=== PATIENT | female | born 1975 | race Two or more races ===

== ENCOUNTER 2019-09-10 10:09 | Inpatient (IN) | payer SELFPAY ==
[~2019-09-10] VITALS: Ht 157.5 cm; Wt 64.0 kg
[2019-09-10] MEDS ORDERED: IV NORMAL SALINE 1000ML BAG 1,000 ML IV ONE (11:45)
[2019-09-10] MEDS ORDERED: CLINDAMYCIN 600MG PREMIX 50 ML IV SCH (12:00)
[2019-09-10 12:22] LABS: BASO # 0.1 x10^3/uL (0.0-0.2); BASO % 1 % (0-3); EOS # 0.1 x10^3/uL (0.0-0.7); EOS % 1 % (0-3); HEMATOCRIT 33.5 % (36.0-47.0); HEMOGLOBIN 11.3 g/dL (12.0-15.5); LYMPH # 2.1 x10^3/uL (1.0-4.8); LYMPH % 24 % (24-48); MEAN CORPUSCULAR HEMOGLOBIN 29 pg (25-35); MEAN CORPUSCULAR HGB CONC 34 g/dL (31-37); MEAN CORPUSCULAR VOLUME 85 fL (79-100); MONO # 0.5 x10^3/uL (0.0-1.1); MONO % 6 % (0-9); NEUT # 6.1 x10^3/uL (1.8-7.7); NEUT % 69 % (31-73); PLATELET COUNT 333 x10^3/uL (140-400); RED BLOOD COUNT 3.93 x10^6/uL (3.50-5.40); RED CELL DISTRIBUTION WIDTH 15.1 % (11.5-14.5); WHITE BLOOD COUNT 8.8 x10^3/uL (4.0-11.0)
[2019-09-10 12:31] LABS: CALCIUM 9.1 mg/dL (8.5-10.1); CREATININE 0.7 mg/dL (0.6-1.0); GFR 90.5; POTASSIUM 4.1 mmol/L (3.5-5.1)
[2019-09-10] MEDS ORDERED: IOHEXOL 300 MG/ML 100ML VIAL. IV ONE (12:45)
[2019-09-10] MEDS ORDERED: CONTRAST GIVEN. MC PRN (12:45)
--- NOTE | 2019-09-10 13:20 | RAD ---
CT MAXILLOFACIAL W/CONTRAST Indication: Swelling and jaw region swelling. Redness and warmth. Difficulty opening mouth. Exposure: One or more of the following individualized dose reduction techniques were utilized for this examination: 1. Automated exposure control 2. Adjustment of the mA and/or kV according to patient size 3. Use of iterative reconstruction technique. Technique: Standard imaging is obtained through the facial region after intravenous contrast demonstration. FINDINGS: Diffuse contiguous swelling of the left parotid gland and adjacent muscles, particularly the masseter muscle. Stranding and swelling of the adjacent fat. There is a irregular low-density collection within ill-defined enhancing wall within this tissue, appears uninvolved both the anterior product gland and the lateral muscle, measuring about 15 mm x 12 mm x 17 mm. The submandibular glands appear unremarkable and symmetric. Mildly prominent submandibular lymph nodes are seen, slightly greater left than right. The visualized airway appears grossly patent and midline. The partially visualized thyroid appears symmetric. Visualized vascular structures appear grossly patent. The study was not protocoled for intracranial evaluation but the partially visualized brain appears grossly symmetric without shift. No abnormal bone destruction or lucency is seen about, maxilla or mandible. No aggressive bone destruction. The visualized sinuses are clear without fluid or mucosal thickening. The visualized orbits appear symmetric. IMPRESSION: Abnormal changes involving the left parotid gland and masseter muscle with an irregular hypodense lesion or collection, suggesting an inflammatory or infectious process with abscess. Note that this could also represent a cystic neoplasm. This most likely arises from the anterior left parotid gland with extension into the adjacent musculature. Electronically signed by: Joel Vera MD (09/10/2019 1:17 PM) [id number]
--- NOTE | 2019-09-10 13:37 | PHYS DOC ---
Past Medical History Past Medical History: No Pertinent History Past Surgical History: Smoking Status: Never Smoker Alcohol Use: None Adult General Chief Complaint Chief Complaint: FACE PROBLEM HPI HPI Patient is a 44 year old female who presents to the emergency department with complaints of left-sided lower jaw swelling and inability to open her mouth. Patient states that the left lower jaw started to hurt approximately 1 week ago. She states she has been taking Bactrim for the last 3 days and her symptoms have continued to worsen. Patient denies any dental pain, dental abscess, fever, cough, sore throat, difficulty swallowing, shortness of breath, nausea, vomiting, diarrhea, abdominal pain, body aches, fatigue, or flulike symptoms. She currently rates her pain a 10 out of 10 on the pain scale, she denies any alleviating factors. Patient states she has tried taking ibuprofen at home with minimal relief of her pain. Review of Systems Review of Systems Complete ROS is negative unless otherwise noted in HPI. Current Medications Current Medications Current Medications Medications (Trade) Dose Ordered Sig/Jessie Start Time Stop Time Status Last Admin Dose Admin Clindamycin Phosphate 50 ml @ 100 mls/hr Q8HRS 09/10/19 12:00 09/10/19 12:26 100 MLS/HR Info (CONTRAST GIVEN -- Rx MONITORING) 1 each PRN DAILY PRN 09/10/19 12:45 09/12/19 12:44 Iohexol (Omnipaque 300 Mg/ml) 70 ml 1X ONCE 09/10/19 12:45 09/10/19 12:46 DC 09/10/19 12:53 70 ML Sodium Chloride 1,000 ml @ 1,000 mls/hr 1X ONCE 09/10/19 11:45 09/10/19 12:44 DC 09/10/19 12:26 1,000 MLS/HR Allergies Allergies Allergies Coded Allergies Type Severity Reaction Last Updated Verified No Known Drug Allergies 09/10/19 No Physical Exam Physical Exam See Above Constitutional: Well developed, well nourished, no acute distress, non-toxic appearance. [] HENT: Normocephalic, atraumatic, bilateral external ears normal, bilateral TMs normal, oropharynx moist, no oral exudates, nose normal Eyes: PERRLA, EOMI, conjunctiva normal, no discharge. [] Neck: Normal range of motion, no tenderness, supple, no stridor. [] Cardiovascular:Heart rate regular rhythm Lungs & Thorax: Bilateral breath sounds clear to auscultation, respirations even and unlabored, no retractions, no respiratory distress [] Skin: Warm, dry, no rash; erythema, warmth, and swelling over left parotid area, no fluctuance, no visual pustule [] Extremities: No cyanosis, no clubbing, ROM intact, no edema. [] Neurologic: Alert and oriented X 3, no focal deficits noted. [] Psychologic: Affect normal, judgement normal, mood normal. [] Current Patient Data Vital Signs Vital Signs Date Time Temp Pulse Resp B/P (MAP) Pulse Ox O2 Delivery O2 Flow Rate FiO2 09/10/19 15:00 84 18 139/83 (101) 97 Room Air 09/10/19 10:35 99.3 99.3 Lab Values Laboratory Tests Test 09/10/19 12:09 White Blood Count 8.8 x10^3/uL (4.0-11.0) Red Blood Count 3.93 x10^6/uL (3.50-5.40) Hemoglobin 11.3 g/dL (12.0-15.5) L Hematocrit 33.5 % (36.0-47.0) L Mean Corpuscular Volume 85 fL (79-100) Mean Corpuscular Hemoglobin 29 pg (25-35) Mean Corpuscular Hemoglobin Concent 34 g/dL (31-37) Red Cell Distribution Width 15.1 % (11.5-14.5) H Platelet Count 333 x10^3/uL (140-400) Neutrophils (%) (Auto) 69 % (31-73) Lymphocytes (%) (Auto) 24 % (24-48) Monocytes (%) (Auto) 6 % (0-9) Eosinophils (%) (Auto) 1 % (0-3) Basophils (%) (Auto) 1 % (0-3) Neutrophils # (Auto) 6.1 x10^3/uL (1.8-7.7) Lymphocytes # (Auto) 2.1 x10^3/uL (1.0-4.8) Monocytes # (Auto) 0.5 x10^3/uL (0.0-1.1) Eosinophils # (Auto) 0.1 x10^3/uL (0.0-0.7) Basophils # (Auto) 0.1 x10^3/uL (0.0-0.2) Sodium Level 138 mmol/L (136-145) Potassium Level 4.1 mmol/L (3.5-5.1) Chloride Level 103 mmol/L (98-107) Carbon Dioxide Level 27 mmol/L (21-32) Anion Gap 8 (6-14) Blood Urea Nitrogen 14 mg/dL (7-20) Creatinine 0.7 mg/dL (0.6-1.0) Estimated GFR (Cockcroft-Gault) 90.5 Glucose Level 90 mg/dL (70-99) Lactic Acid Level 0.6 mmol/L (0.4-2.0) Calcium Level 9.1 mg/dL (8.5-10.1) Laboratory Tests 09/10/19 12:09 Laboratory Tests 09/10/19 12:09 EKG EKG [] Radiology/Procedures Radiology/Procedures PROCEDURE: CT MAXILLOFACIAL W/CONTRAST CT MAXILLOFACIAL W/CONTRAST Indication: Swelling and jaw region swelling. Redness and warmth. Difficulty opening mouth. Exposure: One or more of the following individualized dose reduction techniques were utilized for this examination: 1. Automated exposure control 2. Adjustment of the mA and/or kV according to patient size 3. Use of iterative reconstruction technique. Technique: Standard imaging is obtained through the facial region after intravenous contrast demonstration. FINDINGS: Diffuse contiguous swelling of the left parotid gland and adjacent muscles, particularly the masseter muscle. Stranding and swelling of the adjacent fat. There is a irregular low-density collection within ill-defined enhancing wall within this tissue, appears uninvolved both the anterior product gland and the lateral muscle, measuring about 15 mm x 12 mm x 17 mm. The submandibular glands appear unremarkable and symmetric. Mildly prominent submandibular lymph nodes are seen, slightly greater left than right. The visualized airway appears grossly patent and midline. The partially visualized thyroid appears symmetric. Visualized vascular structures appear grossly patent. The study was not protocoled for intracranial evaluation but the partially visualized brain appears grossly symmetric without shift. No abnormal bone destruction or lucency is seen about, maxilla or mandible. No aggressive bone destruction. The visualized sinuses are clear without fluid or mucosal thickening. The visualized orbits appear symmetric. IMPRESSION: Abnormal changes involving the left parotid gland and masseter muscle with an irregular hypodense lesion or collection, suggesting an inflammatory or infectious process with abscess. Note that this could also represent a cystic neoplasm. This most likely arises from the anterior left parotid gland with extension into the adjacent musculature. [] Course & Med Decision Making Course & Med Decision Making Pertinent Labs and Imaging studies reviewed. (See chart for details) 1350- Spoke with Zandra Browning ENT resident at for ENT consultation, will cloud over CT images 1437- Per Yessica with the transfer team, the on-call ENT specialist has revi ewed the CT images and recommends needle aspiration of the abscess and admission to hospital for IV antibiotics. Will consult our IR and hospitalist for admission to [facility] after receiving these recommendations 1600-spoke with Dr. Mead who is the admitting physician, and care was assumed following discussion of patient. Patient's vital signs stable. Patient remains afebrile, appears nontoxic, respirations even and unlabored. Patient will be admitted to the med/surg floor. Patient's case and plan of care also discussed with Dr. Humberto Cervantes Disclaimer Billy Disclaimer This electronic medical record was generated, in whole or in part, using a voice recognition dictation system. Departure Departure Referrals: NO PCP (PCP) PHILLIP RENAE APRN Sep 10, 2019 13:36
[2019-09-10] MEDS ORDERED: ONDANSETRON PF 4 MG/2 ML VIAL. IV PRN (16:15)
--- NOTE | 2019-09-10 17:08 | NUR ---
pt arrived to room 548. oriented to room and call light. family at bedside
[2019-09-10 17:15] VITALS: BP 138/79
--- NOTE | 2019-09-10 18:07 | PDOC1 ---
History and Physical Date of Admission Date of Admission DATE: 09/10/19 TIME: 18:06 History of Present Illness History of Present Illness Dipika is a 44 year old female who presents to the emergency department with complaints of left-sided lower jaw swelling and inability to open her mouth. Patient states that the left lower jaw started to hurt approximately 1 week ago. She states she has been taking Bactrim for the last 3 days and her symptoms have continued to worsen. Patient denies any dental pain, dental abscess, fever, cough, sore throat, difficulty swallowing, shortness of breath, nausea, vomiting, diarrhea, abdominal pain, body aches, fatigue, or flulike symptoms. She currently rates her pain a 10 out of 10 on the pain scale, she denies any alleviating factors. Patient states she has tried taking ibuprofen at home with minimal relief of her pain. Family History Family History: No Significant Social History Smoke: No ALCOHOL: none Current Medications Current Medications Current Medications Sodium Chloride 1,000 ml @ 1,000 mls/hr 1X ONCE IV Last administered on 09/10/19at 12:26; Start 09/10/19 at 11:45; Stop 09/10/19 at 12:44; Status DC Clindamycin Phosphate 50 ml @ 100 mls/hr Q8HRS IV Last administered on 09/10/19at 12:26; Start 09/10/19 at 12:00 Iohexol (Omnipaque 300 Mg/ml) 70 ml 1X ONCE IV Last administered on 09/10/19at 12:53; Start 09/10/19 at 12:45; Stop 09/10/19 at 12:46; Status DC Info (CONTRAST GIVEN -- Rx MONITORING) 1 each PRN DAILY PRN MC SEE COMMENTS; Start 09/10/19 at 12:45; Stop 09/12/19 at 12:44 Ondansetron HCl (Zofran) 4 mg PRN Q8HRS PRN IV NAUSEA/VOMITING; Start 09/10/19 at 16:15; Stop 09/11/19 at 16:14 Morphine Sulfate (Morphine Sulfate) 4 mg PRN Q2HR PRN IV PAIN; Start 09/10/19 at 16:15; Stop 09/11/19 at 16:14 Allergies Allergies: Coded Allergies: No Known Drug Allergies (Unverified , 09/10/19) ROS General: YES: Fatigue PSYCHOLOGICAL ROS: No: Anxiety, Behavioral Disorder, Concentration difficultie, Decreased libido, Depression, Disorientation, Hallucinations, Hostility, Irritablity, Memory difficulties, Mood Swings, Obsessive thoughts, Physical abuse, Sexual abuse, Sleep disturbances, Suicidal ideation, Other Eyes: No Blurry vision, No Decreased vision, No Double vision, No Dry eyes, No Excessive tearing, No Eye Pain, No Itchy Eyes, No Loss of vision, No Photo phobia, No Scotomata, No Uses contacts, No Uses glasses, No Other HEENT: YES: Sinus pain, Other (swelling); No: Heacaches, Visual Changes, Hearing change, Nasal congestion, Nasal discharge, Oral lesions, Sore Throat, Epistaxis, Sneezing, Snoring, Tinnitus, Vertigo, Vocal changes Respiratory: No: Cough, Hemoptysis, Orthopnea, Pleuritic Pain, Shortness of breath, SOB with excertion, Sputum Changes, Stridor, Tachypnea, Wheezing, Other Cardiovascular: No Chest Pain, No Palpitations, No Orthopnea, No Paroxysmal Noc. Dyspnea, No Edema, No Lt Headedness, No Other Gastrointestinal: No Nausea, No Vomiting, No Abdominal Pain, No Diarrhea, No Constipation, No Melena, No Hematochezia, No Other Genitourinary: No Dysuria, No Frequency, No Incontinence, No Hematuria, No Retention, No Discharge, No Urgency, No Pain, No Flank Pain, No Other, No , No , No , No , No , No , No Musculoskeletal: No Gait Disturbance, No Joint Pain, No Joint Stiffness, No Joint Swelling, No Muscle Pain, No Muscular Weakness, No Pain In:, No Swelling In:, No Other Neurological: No Behavorial Changes, No Bowel/Bladder ControlChng, No Confusion, No Dizziness, No Gait Disturbance, No Headaches, No Impaired Coord/balance, No Memory Loss, No Numbness/Tingling, No Seizures, No Speech Problems, No Tremors, No Visual Changes, No Weakness, No Other Skin: No Dry Skin, No Eczema, No Hair Changes, No Lumps, No Mole Changes, No Mottling, No Nail Changes, No Pruritus, No Rash, No Skin Lesion Changes, No Other, No Acne Physical Exam General: Alert, Oriented X3, No acute distress HEENT: Atraumatic, Other (left face swollen markedly) Lungs: Clear to auscultation Abdomen: Normal bowel sounds, Soft Extremities: No clubbing, No edema Skin: No significant lesion Neuro: Normal speech, Normal tone Psych/Mental Status: Mental status NL, Mood NL Vitals Vitals Vital Signs Date Time Temp Pulse Resp B/P (MAP) Pulse Ox O2 Delivery O2 Flow Rate FiO2 09/10/19 16:30 82 18 134/74 (94) 100 Room Air 09/10/19 10:35 99.3 99.3 Labs Labs Laboratory Tests Test 09/10/19 12:09 White Blood Count 8.8 x10^3/uL (4.0-11.0) Red Blood Count 3.93 x10^6/uL (3.50-5.40) Hemoglobin 11.3 g/dL (12.0-15.5) Hematocrit 33.5 % (36.0-47.0) Mean Corpuscular Volume 85 fL (79-100) Mean Corpuscular Hemoglobin 29 pg (25-35) Mean Corpuscular Hemoglobin Concent 34 g/dL (31-37) Red Cell Distribution Width 15.1 % (11.5-14.5) Platelet Count 333 x10^3/uL (140-400) Neutrophils (%) (Auto) 69 % (31-73) Lymphocytes (%) (Auto) 24 % (24-48) Monocytes (%) (Auto) 6 % (0-9) Eosinophils (%) (Auto) 1 % (0-3) Basophils (%) (Auto) 1 % (0-3) Neutrophils # (Auto) 6.1 x10^3/uL (1.8-7.7) Lymphocytes # (Auto) 2.1 x10^3/uL (1.0-4.8) Monocytes # (Auto) 0.5 x10^3/uL (0.0-1.1) Eosinophils # (Auto) 0.1 x10^3/uL (0.0-0.7) Basophils # (Auto) 0.1 x10^3/uL (0.0-0.2) Sodium Level 138 mmol/L (136-145) Potassium Level 4.1 mmol/L (3.5-5.1) Chloride Level 103 mmol/L (98-107) Carbon Dioxide Level 27 mmol/L (21-32) Anion Gap 8 (6-14) Blood Urea Nitrogen 14 mg/dL (7-20) Creatinine 0.7 mg/dL (0.6-1.0) Estimated GFR (Cockcroft-Gault) 90.5 Glucose Level 90 mg/dL (70-99) Lactic Acid Level 0.6 mmol/L (0.4-2.0) Calcium Level 9.1 mg/dL (8.5-10.1) Laboratory Tests Test 09/10/19 12:09 White Blood Count 8.8 x10^3/uL (4.0-11.0) Red Blood Count 3.93 x10^6/uL (3.50-5.40) Hemoglobin 11.3 g/dL (12.0-15.5) Hematocrit 33.5 % (36.0-47.0) Mean Corpuscular Volume 85 fL (79-100) Mean Corpuscular Hemoglobin 29 pg (25-35) Mean Corpuscular Hemoglobin Concent 34 g/dL (31-37) Red Cell Distribution Width 15.1 % (11.5-14.5) Platelet Count 333 x10^3/uL (140-400) Neutrophils (%) (Auto) 69 % (31-73) Lymphocytes (%) (Auto) 24 % (24-48) Monocytes (%) (Auto) 6 % (0-9) Eosinophils (%) (Auto) 1 % (0-3) Basophils (%) (Auto) 1 % (0-3) Neutrophils # (Auto) 6.1 x10^3/uL (1.8-7.7) Lymphocytes # (Auto) 2.1 x10^3/uL (1.0-4.8) Monocytes # (Auto) 0.5 x10^3/uL (0.0-1.1) Eosinophils # (Auto) 0.1 x10^3/uL (0.0-0.7) Basophils # (Auto) 0.1 x10^3/uL (0.0-0.2) Sodium Level 138 mmol/L (136-145) Potassium Level 4.1 mmol/L (3.5-5.1) Chloride Level 103 mmol/L (98-107) Carbon Dioxide Level 27 mmol/L (21-32) Anion Gap 8 (6-14) Blood Urea Nitrogen 14 mg/dL (7-20) Creatinine 0.7 mg/dL (0.6-1.0) Estimated GFR (Cockcroft-Gault) 90.5 Glucose Level 90 mg/dL (70-99) Lactic Acid Level 0.6 mmol/L (0.4-2.0) Calcium Level 9.1 mg/dL (8.5-10.1) VTE Prophylaxis Ordered VTE Prophylaxis Devices: No VTE Pharmacological Prophylaxi: No Assessment/Plan Assessment/Plan parotid infection to left face admit RAZ RAMOS MD Sep 10, 2019 18:07
[2019-09-10] MEDS ORDERED: PIP/TAZO PER PHARMACY MC PRN (18:15)
[2019-09-10] MEDS: MORPHINE SULFATE 4 MG/ML VIAL. IV PRN (18:22)
[2019-09-10 19:00] VITALS: BP 123/69
[2019-09-10] MEDS: PIPERACILLIN/TAZOBACTAM 3.375 GM in IV NORMAL SALINE 50ML 50 ML IV SCH (19:44)
[2019-09-10 22:35] VITALS: BP 112/58
[2019-09-11] MEDS: PIPERACILLIN/TAZOBACTAM 3.375 GM in IV NORMAL SALINE 50ML 50 ML IV SCH ×3 (00:54→11:10)
[2019-09-11 02:58] VITALS: BP 102/60
[2019-09-11 07:00] VITALS: BP 102/54
--- NOTE | 2019-09-11 10:24 | NUR ---
SW following. Discussed with RN, pt from home. Pt having procedure today to try to drain abscess. [facility] following for self pay status. SW will continue to follow.
[2019-09-11 11:00] VITALS: BP 123/63
[2019-09-11] MEDS ORDERED: ACETAMINOPHEN 325 MG TABLET. PO PRN (11:00)
[2019-09-11] MEDS: MORPHINE SULFATE 4 MG/ML VIAL. IV PRN (12:14)
[2019-09-11] MEDS ORDERED: LIDOCAINE WITH 8.4% SOD BICARB 3 ML DISP.SYRIN. ONE (12:42)
[2019-09-11 12:56] VITALS: BP 115/65
[2019-09-11] MEDS ORDERED: LIDOCAINE WITH 8.4% SOD BICARB 3 ML DISP.SYRIN. INJ ONE (13:00)
[2019-09-11] MEDS ORDERED: AMOX1TAB61 PO (14:10)
[2019-09-11 15:00] VITALS: BP 118/59
--- NOTE | 2019-09-11 15:59 | NUR ---
pt to be discharged home with family. meds and follow up reviewed. pt v/u. IV removed, cath intact.
--- NOTE | 2019-09-12 08:04 | RAD ---
Ultrasound-guided aspiration of left parotid abscess 09/11/[address] demonstrates 1.5 cm probable abscess in left parotid gland with associated prostatitis. Discussion: The procedure was explained in its entirety to the patient or the patients designated field sales representative by a member of the treatment team, including a discussion of the risks, benefits and commonly accepted alternatives to the procedure, as well as the expected consequences of no therapy whatsoever. Discussion of the risks included, but was not limited to, those that are most frequent and those that are rare but possibly severe or life-threatening, as well as the possibility of unforeseen complications. All elements of maximal sterile barrier technique including the use of a cap, mask, sterile gown, sterile gloves, sterile sheets appropriate hand hygiene, and 2% chlorhexidine for cutaneous antisepsis (or acceptable alternative antiseptic per current guidelines) were followed for this procedure. 1% lidocaine was administered for local anesthesia. Ultrasound evaluation demonstrates a heterogenous, hypoechoic focus within the parotid gland. Probable small fluid collection is seen. Some of which has a phlegmonous appearance. Under ultrasound guidance a 25-gauge needle was advanced into the fluid collection, and approximately 0.7 cc of keyshawn pus aspirated. This was sent for Gram stain and culture. The needle was removed and manual pressure held. Impression: Ultrasound-guided aspiration of approximately 1 cm parotid abscess yielding approximately 7 cc of purulent material
== END 2019-09-11 16:00 | disposition home or self-care (01) | DRG 156 ==
LOC: ER 10:09 → 5 SOUTH 16:00
PROVIDERS: ADMIT Internal Medicine; ATTEND Internal Medicine
PROC: 0C993ZX Drainage of Left Parotid Gland, Percutaneous Approach, Diagnostic (ICD-10-PCS; principal; 2019-09-11)
DX: K11.20 Sialoadenitis, unspecified (principal); K11.3 Abscess of salivary gland
CPT/HCPCS: 10005; 36415; 70487; 80048; 83605; 85025; 87071; 87075; 96365; 96366; J2270; J2543; J3490; J7030; Q9967; 99285-25; G0378